=== PATIENT | male | born 1995 | race Caucasian/White ===

== ENCOUNTER 2023-09-30 17:12 | Inpatient (IN) ==
--- NOTE | 2023-09-30 17:23 | ED Triage Note ---
Date of Service September 30, 2023 Provider in Triage Author: Brayan Shelby. History of Present Illness This patient was briefly evaluated while in triage. An abbreviated physical exam was performed. This patient is a 28-year-old Male who presents to the ED for evaluation of sharp stabbing chest pain that has been ongoing for about 2 hours. Started when he was sitting in a workshop. Had a similar episode earlier today woke him out of sleep. + jaw stiffness. Pain does not radiate. No significant cardiac history. Physical Exam CONSTITUTIONAL: in no acute pain or distress, resting comfortably SKIN: pink, warm, dry CARDIAC: regular rate and rhythm CHEST: no reproducible tenderness RESPIRATORY: in no respiratory distress, lungs clear to auscultation ABDOMEN: nontender Initial orders for labs and / or imaging were placed and patient was placed in the waiting area until a bed is available. Please see further documentation for the full ED course.
[2023-09-30 17:52] LABS: Basophils # (auto) 0.03 K/uL (0.00-0.20); Basophils % (auto) 0.6 %; Eosinophils # (auto) 0.06 K/uL (0.00-0.50); Eosinophils % (auto) 1.2 %; Hematocrit (blood only) 44.9 % (42.0-52.0); Hemoglobin 15.2 g/dl (14.0-18.0); Immature Granulocytes # (auto) 0.01 K/uL (0.01-0.20); Immature Granulocytes % (auto) 0.2 %; Lymphocytes # (auto) 1.42 K/uL (1.20-3.40); Mean Corpuscular Hemoglobin 30.6 pg (25.0-34.0); Mean Corpuscular Hgb Conc 33.9 g/dL (32.0-36.0); Mean Corpuscular Volume 90.5 fL (80.0-100.0); Mean Platelet Volume 10.1 fL (9.4-12.4); Monocytes # (auto) 0.66 K/uL (0.11-0.59); Monocytes % (auto) 13.5 %; Neutrophils # (auto) 2.72 K/uL (1.40-6.50); Neutrophils % (auto) 55.5 %; Platelet Count 203 K/uL (130-400); RDW Coefficient of Variation 12.6 % (11.5-14.5); RDW Standard Deviation 41.4 fL (36.4-46.3); Red Blood Count 4.96 M/uL (4.70-6.10)
[2023-09-30 18:08] LABS: Albumin Globulin Ratio 1.5 (0.9-2); Albumin Level 4.7 gm/dl (3.4-5.0); BUN Creatinine Ratio 15.5 (10-20); Bilirubin,Total 0.5 mg/dl (0.2-1.0); Calcium 9.5 mg/dl (8.6-10.3); Creatinine Clr Calc Pharmacy 130.4 ml/min; Est GFR (African American) 124.4 ml/min; Est GFR (Non-African American) 107.3 ml/min; Globulin 3.2 gm/dl (2.5-4.0); Potassium 3.8 mmol/L (3.5-5.1); Total Protein 7.9 gm/dl (6.0-8.3)
[2023-09-30 18:40] LABS: Troponin I High Sensitivity 6741.3 pg/ml (0-20)
[2023-09-30] MEDS: OPTIRAY 320 125ml IV ONE ×2 (19:07→19:41)
--- NOTE | 2023-09-30 19:20 | Emergency Department Note ---
Impression & Plan Myocarditis ED Provider Note NAME: GERMAINE MIRELES AGE: 28 SEX: M : 1995 ARRIVES VIA: Walk-In INFORMANT: Patient, ED PROVIDER(S): Sinai Stroud MD CHIEF COMPLAINT: Chest pain HPI: This is a 28-year-old male presenting for chest pain. Patient notes that this began around 4:30 in the morning with sternal chest pain, just off-center to the left. He notes this resolved within 1 hour in the morning. With then recurred at around 5 PM and has been persistent since. He notes no shortness of breath. He states about a 4/5 out of 10. Otherwise it is a sharp sensation. No fevers associated. He does note he has had feelings of being ill with slight cough, congestion generalized malaise. No history of cardiac issues at young age. No history of dissection. ROS: See above HPI for pertinent positives & negatives. A total of 10 systems reviewed and were otherwise negative. PHYSICAL EXAMINATION: General: resting comfortably in no acute distress Head: Normocephalic and atraumatic Eyes: Normal inspection, extraocular muscles intact Ear, nose, throat: Normal external exam Neck: Normal range of motion Respiratory: lungs clear to auscultation bilaterally Cardiovascular: Regular rate/rhythm, no murmur GI: soft, nontender, no guarding or rebound Extremities: nontender, moves all extremities Neuro: The patient awake and alert, appropriately conversive, no focal deficits, symmetric faces Skin: Warm, dry, and intact MEDICAL DECISION MAKING: This is a 28-year-old male presenting for chest pain. Was alerted to bedside by nurse who reported patient's troponin was over 6700. I performed a bedside echo which reveals normal EF, no signs of right heart strain, no pericardial effusion. EKG is reviewed by me showing normal sinus rhythm at a rate of 85, intervals, with some elevations consistent with STEMI criteria. Copy of EKG was sent to per diem rn who agrees that this is not meeting STEMI criteria. Would recommend interval EKGs. Repeat EKG is largely unchanged from initial EKG. Concern for dissection versus PE however PE is considered less likely as patient is not hypoxic, tachypneic or tachycardic. Dissection is also considered as patient is fairly tall. -CT imaging does not reveal any signs of dissection or PE. Otherwise clinically patient has no pain at this time. EKG for the third time reveals no significant change, still sinus rhythm without ST segment elevations concerning for STEMI. Intervals otherwise within normal limits. -Patient reassessed multiple times during his stay here. Overall well- appearing. With patient's history of having viral type illness last week, consider myocarditis as most likely cause. -Will admit patient for further workup. Discussed with Dr. Jha for admission. Differential diagnosis: STEMI, dissection, PE, myocarditis ER treatment provided: See below Diagnostics interpreted by me: ECG: See above Cardiac Monitoring: An order was placed for continuous cardiac monitoring. The monitor shows a rate of 83 with sinus rhythm. Laboratory studies: As stated above and show below. Imaging studies: See below. Critical Care Note: I have personally spent 35 minutes of critical care time in the direct management of this patient. This includes bedside care, interpretation of diagnostic studies, and testing, discussion with consultants, patient, and family members, and other required patient management activities. This 35 minutes is in excess of all separately billable procedures. 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 Beliefs That Will Affect Care: None Current Living Situation: Alone Other Information That Helps Us Care for You: No Feels Safe at Home: Yes Safety Concerns: Feels Safe At This Time Assistive Devices: Glasses Allergies Allergies Allergy/AdvReac Type Severity Reaction Status Date / Time dog dander Allergy Mild rash Verified 09/30/23 22:30 tea tree Allergy Mild rash Verified 09/30/23 22:30 Home Meds Home Medications Medication Instructions Recorded Confirmed loratadine 10 mg PO DAILY PRN allergies 09/30/23 09/30/23 Results & Data (ED) Vital Signs Vital Signs - 24 hr 09/30/23 17:20 09/30/23 18:40 09/30/23 18:41 Temperature 36.8 C Temperature Source Temporal Artery Scan Pulse Rate 85 78 Pulse Rate [Apical] 70 Pulse Rate from SpO2 Sensor Pulse Rhythm Regular Regular Pulse Strength Normal Respiratory Rate 18 19 19 Respiratory Effort / Characteristics Non-Labored Spontaneous Non-Labored Spontaneous Respiratory Depth Normal Normal Respiratory Pattern Regular Blood Pressure 137/82 Blood Pressure [Right Arm] 136/85 Blood Pressure Mean 100 Blood Pressure Mean [Right Arm] 102 Blood Pressure Position Sitting Pulse Oximetry 99 99 99 Oxygen Delivery Method Room Air Room Air Room Air Sepsis Recent Fever Within 48 Hours No Sepsis New/Unexplained Change in Mental Status No Sepsis Action Taken by Nursing No Action Required 09/30/23 18:46 09/30/23 19:00 09/30/23 19:30 Temperature Temperature Source Pulse Rate 80 91 H 93 H Pulse Rate [Apical] Pulse Rate from SpO2 Sensor 87 Pulse Rhythm Pulse Strength Respiratory Rate 19 22 Respiratory Effort / Characteristics Respiratory Depth Respiratory Pattern Blood Pressure 167/102 H 131/79 Blood Pressure [Right Arm] Blood Pressure Mean 123 96 Blood Pressure Mean [Right Arm] Blood Pressure Position Pulse Oximetry 100 100 Oxygen Delivery Method Room Air Room Air Sepsis Recent Fever Within 48 Hours Sepsis New/Unexplained Change in Mental Status Sepsis Action Taken by Nursing 09/30/23 21:03 09/30/23 21:30 09/30/23 22:00 Temperature Temperature Source Pulse Rate 84 91 H 82 Pulse Rate [Apical] Pulse Rate from SpO2 Sensor 85 91 H 83 Pulse Rhythm Pulse Strength Respiratory Rate 16 20 20 Respiratory Effort / Characteristics Respiratory Depth Respiratory Pattern Blood Pressure 134/78 139/87 127/80 Blood Pressure [Right Arm] Blood Pressure Mean 96 104 95 Blood Pressure Mean [Right Arm] Blood Pressure Position Pulse Oximetry 97 98 98 Oxygen Delivery Method Room Air Room Air Room Air Sepsis Recent Fever Within 48 Hours Sepsis New/Unexplained Change in Mental Status Sepsis Action Taken by Nursing 09/30/23 22:30 Temperature Temperature Source Pulse Rate 88 Pulse Rate [Apical] Pulse Rate from SpO2 Sensor 91 H Pulse Rhythm Pulse Strength Respiratory Rate 21 Respiratory Effort / Characteristics Respiratory Depth Respiratory Pattern Blood Pressure 142/84 H Blood Pressure [Right Arm] Blood Pressure Mean 103 Blood Pressure Mean [Right Arm] Blood Pressure Position Pulse Oximetry 98 Oxygen Delivery Method Room Air Sepsis Recent Fever Within 48 Hours Sepsis New/Unexplained Change in Mental Status Sepsis Action Taken by Nursing Laboratory Data 09/30/23 17:33 09/30/23 17:33 Lab Results 09/30/23 09/30/23 Range/Units 17:33 19:18 WBC 4.90 (4.8-10.8) K/ul RBC 4.96 (4.70-6.10) M/uL Hgb 15.2 (14.0-18.0) g/dl Hct 44.9 (42.0-52.0) % MCV 90.5 (80.0-100.0) fL MCH 30.6 (25.0-34.0) pg MCHC 33.9 (32.0-36.0) g/dL RDW Std Deviation 41.4 (36.4-46.3) fL RDW Coeff of Shena 12.6 (11.5-14.5) % Plt Count 203 (130-400) K/uL MPV 10.1 (9.4-12.4) fL Immature Gran % (Auto) 0.2 % Neut % (Auto) 55.5 % Lymph % (Auto) 29.0 % Ogle % (Auto) 13.5 % Eos % (Auto) 1.2 % Baso % (Auto) 0.6 % Neut # (Auto) 2.72 (1.40-6.50) K/uL Lymph # (Auto) 1.42 (1.20-3.40) K/uL Ogle # (Auto) 0.66 H (0.11-0.59) K/uL Eos # (Auto) 0.06 (0.00-0.50) K/uL Baso # (Auto) 0.03 (0.00-0.20) K/uL Immature Gran # (Auto) 0.01 (0.01-0.20) K/uL Sodium 139 (136-145) mmol/L Potassium 3.8 (3.5-5.1) mmol/L Chloride 103 (98-107) mmol/L Carbon Dioxide 29 (21-32) mmol/L Anion Gap 7 (3-11) BUN 15 (6-23) mg/dl Creatinine 0.97 (0.6-1.4) mg/dl Est Cr Clr Drug Dosing 130.4 ml/min Est GFR ( Amer) 124.4 ml/min Est GFR (Non-Af Amer) 107.3 ml/min BUN/Creatinine Ratio 15.5 (10-20) Glucose 104 H (70-99(Fasting)) mg/dl Calcium 9.5 (8.6-10.3) mg/dl Total Bilirubin 0.5 (0.2-1.0) mg/dl AST 53 H (13-39) U/L ALT 23 (7-52) U/L Alkaline Phosphatase 41 (34-104) U/L Troponin I High Sens 6741.3 H* 8691.9 H* D (0-20) pg/ml Total Protein 7.9 (6.0-8.3) gm/dl Albumin 4.7 (3.4-5.0) gm/dl Globulin 3.2 (2.5-4.0) gm/dl Albumin/Globulin Ratio 1.5 (0.9-2) Lipase 17 (11-82) U/L Lyme Disease Screen Negative (Negative) Administered Medications Sodium Chloride (Nss) 1,000 mls @ 80 mls/hr IV .[id number] STA Stop: 10/01/23 10:13 Last Admin: 09/30/23 21:51 Dose: 80 mls/hr Documented By: TALON Discontinued Medications Ioversol (Optiray 320 125ml) 117 ml IV ONCE ONE Stop: 09/30/23 19:07 Last Admin: 09/30/23 19:07 Dose: 117 ml Documented By: ALIYA Ioversol (Optiray 320 125ml) 116 ml IV ONCE ONE Stop: 09/30/23 19:41 Last Admin: 09/30/23 19:41 Dose: 116 ml Documented By: ALIYA Miscellaneous Information (Patient's Allergy Info Needs Entered) 1 each N/A ONE STA Stop: 09/30/23 21:45 Last Admin: 09/30/23 21:51 Dose: 1 each Documented By: TALON Imaging Data Radiologist's Impression: Chest X-Ray 09/30/23 17:23 XR chest 1V portable HISTORY: central chest pain COMPARISON: None. FINDINGS: The lungs are clear. Cardiac silhouette is normal in size. No pleural effusions. No pneumothorax. IMPRESSION: No acute process. ACT 112: Negative or not required by law. Electronically signed by: George Gilbert M.D. 09/30/2023 7:40 PM Chest CTA 09/30/23 18:52 CHEST CTA for AORTIC DISSECTION CT DOSE: 1900.77 mGy.cm HISTORY: Mid chest pain. Dissection vs PE TECHNIQUE: Multiaxial CT images of the chest were performed both before and after the intravenous administration of contrast to evaluate the aorta. 3D/MIP images were also obtained. Sagittal and coronal reformations were also reviewed. A dose lowering technique was utilized adhering to the principles of ALARA. COMPARISON STUDY: None. FINDINGS: Noncontrast imaging through the chest shows no evidence for an intramural hematoma within the thoracic aorta. There is a normal caliber thoracic aorta with no evidence for a dissection. No filling defects within the pulmonary arteries to suggest a pulmonary embolus. The heart is normal in size. No pleural or pericardial effusions. Limited views of the upper abdomen demonstrate a normal liver, spleen, adrenal glands. Normal esophagus. Normal thyroid gland. No mediastinal or hilar lymphadenopathy. No mediastinal hematoma. No acute fractures identified. No pneumothorax. Mild biapical pleural- parenchymal scarlike densities are noted. The central airways are patent. No focal lung consolidations to suggest a pneumonia. No evidence for pulmonary edema. IMPRESSION: No evidence for an aortic dissection. ACT 112: Negative or not required by law. Electronically signed by: George Gilbert M.D. 09/30/2023 7:40 PM Abdomen/Pelvis CTA 09/30/23 19:09 Exam(s): CTA ABDOMEN + PELVIS W/WO Contrast IV Amt: 116ml EXAM: CT Angiography Abdomen and Pelvis Without and With Intravenous Contrast CLINICAL HISTORY: Reason for exam: Dissection. TECHNIQUE: Axial computed tomographic angiography images of the abdomen and pelvis without and with intravenous contrast. CTDI is 25.65 mGy and DLP is 2729. 98 mGy-cm. Automated exposure control was utilized for the study. A dose lowering technique was utilized adhering to the principles of ALARA. MIP reconstructed images were created and reviewed. CONTRAST: Patient received 116ml of IV contrast COMPARISON: No relevant prior studies available. FINDINGS: VASCULATURE: Aorta: No acute findings. No abdominal aortic aneurysm. No dissection. Celiac trunk and mesenteric arteries: No acute findings. No occlusion or significant stenosis. Renal arteries: No acute findings. No occlusion or significant stenosis. Iliac arteries: No acute findings. No occlusion or significant stenosis. Lung bases: Unremarkable. No mass. No consolidation. ABDOMEN: Liver: Unremarkable. No mass. Gallbladder and bile ducts: Unremarkable. No calcified stones. No ductal dilation. Pancreas: Unremarkable. No ductal dilation. No mass. Spleen: Unremarkable. No splenomegaly. Adrenals: Unremarkable. No mass. Kidneys and ureters: Residual contrast in the renal collecting systems and ureters on precontrast imaging. Normal caliber ureters. No hydronephrosis. Symmetric renal enhancement on postcontrast imaging. Stomach and bowel: Unremarkable. No mucosal thickening. No bowel obstruction. PELVIS: Appendix: No evidence of appendicitis. Bladder: Unremarkable. No stones. No mass. Reproductive: Unremarkable as visualized. ABDOMEN and PELVIS: Intraperitoneal space: Unremarkable. No significant fluid collection. No free air. Bones/joints: No acute fracture. No dislocation. Soft tissues: Unremarkable. Lymph nodes: Unremarkable. No enlarged lymph nodes. IMPRESSION: No acute findings in the arteries of the abdomen and pelvis. Electronically signed by: Benji Arora M.D. 09/30/23 20:36 PM Discharge Plan Visit Data Chief Complaint: Cardiac Assessment Stated Complaint: CHEST PAINS, STIFF JAW ED Provider: Sinai Stroud Discharge Problem: Myocarditis Patient Disposition: Still a Patient Discharge Instructions Interventions: ED Discharge Assessment Last Done: 10/01/23 00:20
--- NOTE | 2023-09-30 19:42 | CT Scan Report ---
CHEST CTA for AORTIC DISSECTION CT DOSE: 1900.77 mGy.cm HISTORY: Mid chest pain. Dissection vs PE TECHNIQUE: Multiaxial CT images of the chest were performed both before and after the intravenous adm inistration of contrast to evaluate the aorta. 3D/MIP images were also obtained. Sagittal and coronal reformations were also reviewed. A dose lowering technique was utilized adhering to the principles of ALARA. COMPARISON STUDY: None. FINDINGS: Noncontrast imaging through the chest shows no evidence for an intramural hematoma within t he thoracic aorta. There is a normal caliber thoracic aorta with no evidence for a dissection. No genevieve ling defects within the pulmonary arteries to suggest a pulmonary embolus. The heart is normal in siz e. No pleural or pericardial effusions. Limited views of the upper abdomen demonstrate a normal liver , spleen, adrenal glands. Normal esophagus. Normal thyroid gland. No mediastinal or hilar lymphadenop athy. No mediastinal hematoma. No acute fractures identified. No pneumothorax. Mild biapical pleural- parenchymal scarlike densities are noted. The central airways are patent. No focal lung consolidation s to suggest a pneumonia. No evidence for pulmonary edema. IMPRESSION: No evidence for an aortic dissection. ACT 112: Negative or not required by law. Electronically signed by: George Gilbert M.D. 09/30/2023 7:40 PM
--- NOTE | 2023-09-30 19:42 | XRay Report ---
XR chest 1V portable HISTORY: central chest pain COMPARISON: None. FINDINGS: The lungs are clear. Cardiac silhouette is normal in size. No pleural effusions. No pneumot horax. IMPRESSION: No acute process. ACT 112: Negative or not required by law. Electronically signed by: George Gilbert M.D. 09/30/2023 7:40 PM
--- NOTE | 2023-09-30 20:37 | CT Scan Report ---
Exam(s): CTA ABDOMEN + PELVIS W/WO Contrast IV Amt: 116ml EXAM: CT Angiography Abdomen and Pelvis Without and With Intravenous Contrast CLINICAL HISTORY: Reason for exam: Dissection. TECHNIQUE: Axial computed tomographic angiography images of the abdomen and pelvis without and with intravenous contrast. CTDI is 25.65 mGy and DLP is 2729. 98 mGy-cm. Automated exposure control was utilized for the study. A dose lowering technique was utilized adhering to the principles of ALARA. MIP reconstructed images were created and reviewed. CONTRAST: Patient received 116ml of IV contrast COMPARISON: No relevant prior studies available. FINDINGS: VASCULATURE: Aorta: No acute findings. No abdominal aortic aneurysm. No dissection. Celiac trunk and mesenteric arteries: No acute findings. No occlusion or significant stenosis. Renal arteries: No acute findings. No occlusion or significant stenosis. Iliac arteries: No acute findings. No occlusion or significant stenosis. Lung bases: Unremarkable. No mass. No consolidation. ABDOMEN: Liver: Unremarkable. No mass. Gallbladder and bile ducts: Unremarkable. No calcified stones. No ductal dilation. Pancreas: Unremarkable. No ductal dilation. No mass. Spleen: Unremarkable. No splenomegaly. Adrenals: Unremarkable. No mass. Kidneys and ureters: Residual contrast in the renal collecting systems and ureters on precontrast imaging. Normal caliber ureters. No hydronephrosis. Symmetric renal enhancement on postcontrast imaging. Stomach and bowel: Unremarkable. No mucosal thickening. No bowel obstruction. PELVIS: Appendix: No evidence of appendicitis. Bladder: Unremarkable. No stones. No mass. Reproductive: Unremarkable as visualized. ABDOMEN and PELVIS: Intraperitoneal space: Unremarkable. No significant fluid collection. No free air. Bones/joints: No acute fracture. No dislocation. Soft tissues: Unremarkable. Lymph nodes: Unremarkable. No enlarged lymph nodes. IMPRESSION: No acute findings in the arteries of the abdomen and pelvis. Electronically signed by: Benji Arora M.D. 09/30/23 20:36 PM
[2023-09-30 20:46] LABS: Adenovirus PCR Not Detected (NotDetected); Bordetella parapertussis PCR Not Detected (NotDetected); Bordetella pertussis PCR Not Detected (NotDetected); Chlamydia pneumoniae PCR Not Detected (NotDetected); Coronavirus 229E PCR Not Detected (NotDetected); Coronavirus CoV-2 (COVID19)PCR Not Detected (NotDetected); Coronavirus HKU1 PCR Not Detected (NotDetected); Coronavirus NL63 PCR Not Detected (NotDetected); Coronavirus OC43PCR Not Detected (NotDetected); Human Metapneumovirus PCR Not Detected (NotDetected); Influenza A PCR Not Detected (NotDetected); Influenza B PCR Not Detected (NotDetected); Mycoplasma pneumoniae PCR Not Detected (NotDetected); Parainfluenza Virus 1 PCR Not Detected (NotDetected); Parainfluenza Virus 2 PCR Not Detected (NotDetected); Parainfluenza Virus 3 PCR Not Detected (NotDetected); Parainfluenza Virus 4 PCR Not Detected (NotDetected); Respiratory Syncytial VirusPCR Not Detected (NotDetected); Rhinovirus/Enterovirus PCR Not Detected (NotDetected)
[2023-09-30] MEDS: Patient's ALLERGY Info needs ENTERED STA (21:51)
[2023-09-30] MEDS: SODIUM CHLORIDE 0.9% 1,000 ML IV STA (21:51)
--- NOTE | 2023-09-30 22:30 | History & Physical Report ---
Date of Service September 30, 2023 Assessment & Plan (1) Myocarditis: Plan: Possibly viral etiology bronchial asthma, not in acute exacerbation ulcerative colitis, in remission past alcohol abuse PCU NSAIDs for analgesia Follow troponin TTE, cardiology consult Re: Chest pain with troponin elevation DVT prophylaxis. Lovenox subcu Full code Patient requesting for discharge before noontime tomorrow if feasible due to scheduled presentation at the [facility] in the afternoon. Text document was generated using [employer] voice recognition software. It may contain grammatical or spelling errors. Kindly contact undersigned for clarification of any documentation item in question. History of Present Illness Chief Complaint: Chest pain Primary Care Provider: NO PCP History obtained from patient and records. Medical history significant for bronchial asthma, ulcerative colitis, past alcohol abuse. 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 Patient noted dry cough symptoms, malaise few days ago en route to [place] from [place]. Attributed symptoms to just being tired from travel with 3 connecting flights. Patient roused from sleep early a.m. with left-sided sharp chest pain without radiation. No shortness of breath. No headache, no abdominal pain. May have had a short-lived episode a few months back. Different from reflux as per patient. Patient consulted ER for worsening symptoms. Patient currently comfortable. 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 Allergies Allergy/AdvReac Type Severity Reaction Status Date / Time dog dander Allergy Mild rash Verified 09/30/23 22:30 tea tree Allergy Mild rash Verified 09/30/23 22:30 Home Medications Medication Instructions Recorded Confirmed Type loratadine 10 mg PO DAILY PRN allergies 09/30/23 09/30/23 History Past Med/Surg History Problem List (Updated 10/01/23 @ 01:06 by Sinai Stroud MD) Myocarditis (Acute) Social History Smoking Status: Never smoker Hx Alcohol Use: Yes Alcohol type: wine Hx Substance Use: Yes Last Used Substance Other:: over a year ago Substance Use Type Other:: shrooms Preferred Language: Sami Communication Ability: Effective Kettle Hand Required: No Beliefs That Will Affect Care: None Current Living Situation: Alone Other Information That Helps Us Care for You: No Feels Safe at Home: Yes Safety Concerns: Feels Safe At This Time Assistive Devices: Glasses Review of Systems Review of Systems: As per HPI, all other systems reviewed and negative Physical Exam Physical Exam: GENERAL: Comfortable, pleasant, no respiratory distress SKIN: Normal color, warm HEENT: Bespectacled, [place] palpebral conjunctivae, no ptosis, dry buccal mucosa NECK : Supple, no tenderness CHEST : CTA, no tenderness HEART : RRR, no obvious murmurs ABDOMEN: no distention, nontender EXTREMITIES : No LE swelling/tenderness, no other conspicuous deformities noted NEUROLOGIC : Coherent, no facial asymmetry, no other gross focality Results & Data Results & Data Vital Signs (Past 12 Hours) Vital Signs Temp Pulse Pulse Resp BP BP Pulse Ox 09/30/23 21:30 91 H 20 139/87 98 09/30/23 21:03 84 16 134/78 97 09/30/23 19:30 93 H 22 131/79 100 09/30/23 19:00 91 H 19 167/102 H 100 09/30/23 18:46 80 09/30/23 18:41 78 19 99 09/30/23 18:40 70 19 136/85 99 09/30/23 17:20 36.8 C 85 18 137/82 99 O2 Del Method 09/30/23 21:30 Room Air 09/30/23 21:03 Room Air 09/30/23 19:30 Room Air 09/30/23 19:00 Room Air 09/30/23 18:46 09/30/23 18:41 Room Air 09/30/23 18:40 Room Air 09/30/23 17:20 Room Air Laboratory Results Laboratory Results WBC 4.90 K/ul (4.8-10.8) 09/30/23 17:33 RBC 4.96 M/uL (4.70-6.10) 09/30/23 17:33 Hgb 15.2 g/dl (14.0-18.0) 09/30/23 17:33 Hct 44.9 % (42.0-52.0) 09/30/23 17:33 MCV 90.5 fL (80.0-100.0) 09/30/23 17:33 MCH 30.6 pg (25.0-34.0) 09/30/23 17:33 MCHC 33.9 g/dL (32.0-36.0) 09/30/23 17:33 RDW Std Deviation 41.4 fL (36.4-46.3) 09/30/23 17:33 RDW Coeff of [place] 12.6 % (11.5-14.5) 09/30/23 17:33 Plt Count 203 K/uL (130-400) 09/30/23 17:33 MPV 10.1 fL (9.4-12.4) 09/30/23 17:33 Immature Gran % (Auto) 0.2 % 09/30/23 17:33 Neut % (Auto) 55.5 % 09/30/23 17:33 Lymph % (Auto) 29.0 % 09/30/23 17:33 [place] % (Auto) 13.5 % 09/30/23 17:33 Eos % (Auto) 1.2 % 09/30/23 17:33 Baso % (Auto) 0.6 % 09/30/23 17:33 Neut # (Auto) 2.72 K/uL (1.40-6.50) 09/30/23 17:33 Lymph # (Auto) 1.42 K/uL (1.20-3.40) 09/30/23 17:33 [place] # (Auto) 0.66 K/uL (0.11-0.59) H 09/30/23 17:33 Eos # (Auto) 0.06 K/uL (0.00-0.50) 09/30/23 17:33 Baso # (Auto) 0.03 K/uL (0.00-0.20) 09/30/23 17:33 Immature Gran # (Auto) 0.01 K/uL (0.01-0.20) 09/30/23 17:33 Sodium 139 mmol/L (136-145) 09/30/23 17:33 Potassium 3.8 mmol/L (3.5-5.1) 09/30/23 17:33 Chloride 103 mmol/L (98-107) 09/30/23 17:33 Carbon Dioxide 29 mmol/L (21-32) 09/30/23 17:33 Anion Gap 7 (3-11) 09/30/23 17:33 BUN 15 mg/dl (6-23) 09/30/23 17:33 Creatinine 0.97 mg/dl (0.6-1.4) 09/30/23 17:33 Est Cr Clr Drug Dosing 130.4 ml/min 09/30/23 17:33 Est GFR ( Amer) 124.4 ml/min 09/30/23 17:33 Est GFR (Non-Af Amer) 107.3 ml/min 09/30/23 17:33 BUN/Creatinine Ratio 15.5 (10-20) 09/30/23 17:33 Glucose 104 mg/dl (70-99(Fasting)) H 09/30/23 17:33 Calcium 9.5 mg/dl (8.6-10.3) 09/30/23 17:33 Total Bilirubin 0.5 mg/dl (0.2-1.0) 09/30/23 17:33 AST 53 U/L (13-39) H 09/30/23 17:33 ALT 23 U/L (7-52) 09/30/23 17:33 Alkaline Phosphatase 41 U/L (34-104) 09/30/23 17:33 Troponin I High Sens 8691.9 pg/ml (0-20) H* D 09/30/23 19:18 Total Protein 7.9 gm/dl (6.0-8.3) 09/30/23 17:33 Albumin 4.7 gm/dl (3.4-5.0) 09/30/23 17:33 Globulin 3.2 gm/dl (2.5-4.0) 09/30/23 17:33 Albumin/Globulin Ratio 1.5 (0.9-2) 09/30/23 17:33 Lipase 17 U/L (11-82) 09/30/23 17:33 Adenovirus (PCR) Not Detected (NotDetected) 09/30/23 Unknown B. pertussis DNA (PCR) Not Detected (NotDetected) 09/30/23 Unknown B.parapertussis DNA PCR Not Detected (NotDetected) 09/30/23 Unknown C. pneumoniae DNA (PCR) Not Detected (NotDetected) 09/30/23 Unknown Coronavirus OC43 (PCR) Not Detected (NotDetected) 09/30/23 Unknown Coronavirus HKU1 (PCR) Not Detected (NotDetected) 09/30/23 Unknown Coronavirus 229E (PCR) Not Detected (NotDetected) 09/30/23 Unknown SARS-CoV-2 (PCR) Not Detected (NotDetected) 09/30/23 Unknown Coronavirus NL63 (PCR) Not Detected (NotDetected) 09/30/23 Unknown Human Metapneumovir PCR Not Detected (NotDetected) 09/30/23 Unknown Influenza Type A (PCR) Not Detected (NotDetected) 09/30/23 Unknown Influenza Type B (PCR) Not Detected (NotDetected) 09/30/23 Unknown M. pneumoniae (PCR) Not Detected (NotDetected) 09/30/23 Unknown Parainfluenza 1 (PCR) Not Detected (NotDetected) 09/30/23 Unknown Parainfluenza 2 (PCR) Not Detected (NotDetected) 09/30/23 Unknown Parainfluenza 3 (PCR) Not Detected (NotDetected) 09/30/23 Unknown Parainfluenza 4 (PCR) Not Detected (NotDetected) 09/30/23 Unknown RSV (PCR) Not Detected (NotDetected) 09/30/23 Unknown Entero/Rhino (PCR) Not Detected (NotDetected) 09/30/23 Unknown Impressions Chest X-Ray 09/30/23 17:23 XR chest 1V portable HISTORY: central chest pain COMPARISON: None. FINDINGS: The lungs are clear. Cardiac silhouette is normal in size. No pleural effusions. No pneumothorax. IMPRESSION: No acute process. ACT 112: Negative or not required by law. Electronically signed by: George Gilbert M.D. 09/30/2023 7:40 PM Chest CTA 09/30/23 18:52 CHEST CTA for AORTIC DISSECTION CT DOSE: 1900.77 mGy.cm HISTORY: Mid chest pain. Dissection vs PE TECHNIQUE: Multiaxial CT images of the chest were performed both before and after the intravenous administration of contrast to evaluate the aorta. 3D/MIP images were also obtained. Sagittal and coronal reformations were also reviewed. A dose lowering technique was utilized adhering to the principles of ALARA. COMPARISON STUDY: None. FINDINGS: Noncontrast imaging through the chest shows no evidence for an intramural hematoma within the thoracic aorta. There is a normal caliber thoracic aorta with no evidence for a dissection. No filling defects within the pulmonary arteries to suggest a pulmonary embolus. The heart is normal in size. No pleural or pericardial effusions. Limited views of the upper abdomen demonstrate a normal liver, spleen, adrenal glands. Normal esophagus. Normal thyroid gland. No mediastinal or hilar lymphadenopathy. No mediastinal hematoma. No acute fractures identified. No pneumothorax. Mild biapical pleural- parenchymal scarlike densities are noted. The central airways are patent. No focal lung consolidations to suggest a pneumonia. No evidence for pulmonary edema. IMPRESSION: No evidence for an aortic dissection. ACT 112: Negative or not required by law. Electronically signed by: George Gilbert M.D. 09/30/2023 7:40 PM Abdomen/Pelvis CTA 09/30/23 19:09 Exam(s): CTA ABDOMEN + PELVIS W/WO Contrast IV Amt: 116ml EXAM: CT Angiography Abdomen and Pelvis Without and With Intravenous Contrast CLINICAL HISTORY: Reason for exam: Dissection. TECHNIQUE: Axial computed tomographic angiography images of the abdomen and pelvis without and with intravenous contrast. CTDI is 25.65 mGy and DLP is 2729. 98 mGy-cm. Automated exposure control was utilized for the study. A dose lowering technique was utilized adhering to the principles of ALARA. MIP reconstructed images were created and reviewed. CONTRAST: Patient received 116ml of IV contrast COMPARISON: No relevant prior studies available. FINDINGS: VASCULATURE: Aorta: No acute findings. No abdominal aortic aneurysm. No dissection. Celiac trunk and mesenteric arteries: No acute findings. No occlusion or significant stenosis. Renal arteries: No acute findings. No occlusion or significant stenosis. Iliac arteries: No acute findings. No occlusion or significant stenosis. Lung bases: Unremarkable. No mass. No consolidation. ABDOMEN: Liver: Unremarkable. No mass. Gallbladder and bile ducts: Unremarkable. No calcified stones. No ductal dilation. Pancreas: Unremarkable. No ductal dilation. No mass. Spleen: Unremarkable. No splenomegaly. Adrenals: Unremarkable. No mass. Kidneys and ureters: Residual contrast in the renal collecting systems and ureters on precontrast imaging. Normal caliber ureters. No hydronephrosis. Symmetric renal enhancement on postcontrast imaging. Stomach and bowel: Unremarkable. No mucosal thickening. No bowel obstruction. PELVIS: Appendix: No evidence of appendicitis. Bladder: Unremarkable. No stones. No mass. Reproductive: Unremarkable as visualized. ABDOMEN and PELVIS: Intraperitoneal space: Unremarkable. No significant fluid collection. No free air. Bones/joints: No acute fracture. No dislocation. Soft tissues: Unremarkable. Lymph nodes: Unremarkable. No enlarged lymph nodes. IMPRESSION: No acute findings in the arteries of the abdomen and pelvis. Electronically signed by: Benji Arora M.D. 09/30/23 20:36 PM Diagnostic Findings EKG as per my interpretation : Rate 85, NSR, normal axis, T wave abnormalities septal leads
[2023-09-30] MEDS ORDERED: LORazepam 0.5 MG TAB PO PRN (22:31)
[2023-09-30] MEDS ORDERED: ACETAMINOPHEN 325 MG TAB PO PRN (22:31)
[2023-09-30] MEDS ORDERED: IBUPROFEN 200 MG TAB PO PRN (22:31)
[2023-09-30] MEDS ORDERED: PROMETHAZINE HCL 6.25 MG in SODIUM CHLORIDE 0.9% 50 ML IV PRN (22:31)
[2023-09-30] MEDS ORDERED: KETOROLAC TROMETHAMINE 15 MG/ML VIAL IV PRN (22:31)
[2023-09-30 23:18] LABS: C Reactive Protein 3.2 mg/dl (0-0.5)
[2023-10-01 00:21] LABS: Appearance Urine Clear (Clear); Bacteria Urine Automated None Seen (None Seen); Bilirubin Urine Negative (Negative); Blood Urine Negative (Negative); Cast Urine Automated 0-2 /lpf (0-2); Color Urine Yellow; Epithelial Cell Urine Auto 0-2 /hpf (0-2); Glucose Urine UA Negative (Negative); Ketones Urine Negative (Negative); Leukocyte Esterase Urine Negative (Negative); Nitrite Urine Negative (Negative); Protein Urine Trace (Negative); RBC Urine Automated 0-2 /hpf (0-2); Specific Gravity Urine > 1.045 (1.000-1.030); Urobilinogen Urine Negative (Negative); WBC Urine Automated 0-5 /hpf (0-5); pH Urine 6.5 (4.5-7.5)
[2023-10-01] MEDS ORDERED: LORATADINE 10 MG TAB PO PRN (00:21)
[2023-10-01 01:08] LABS: Amphetamines+Metham, Urine Neg (Neg); Barbiturates, Urine Neg (Neg); Benzodiazepine, Urine Neg (Neg); Cocaine, Urine Neg (Neg); Fentanyl, Urine Neg (Neg); MDMA (Ecstacy), Urine Neg (Neg); Marijuana, Urine Neg (Neg); Methadone, Urine Neg (Neg); Opiate, Urine Neg (Neg); Phencyclidine, Urine Neg (Neg)
[2023-10-01 04:48] LABS: Basophils # (auto) 0.03 K/uL (0.00-0.20); Basophils % (auto) 0.6 %; Eosinophils # (auto) 0.11 K/uL (0.00-0.50); Eosinophils % (auto) 2.1 %; Hematocrit (blood only) 40.2 % (42.0-52.0); Hemoglobin 13.6 g/dl (14.0-18.0); Immature Granulocytes # (auto) 0.01 K/uL (0.01-0.20); Immature Granulocytes % (auto) 0.2 %; Lymphocytes # (auto) 1.73 K/uL (1.20-3.40); Lymphocytes % (auto) 33.7 %; Mean Corpuscular Hemoglobin 30.6 pg (25.0-34.0); Mean Corpuscular Hgb Conc 33.8 g/dL (32.0-36.0); Mean Corpuscular Volume 90.3 fL (80.0-100.0); Mean Platelet Volume 10.1 fL (9.4-12.4); Monocytes # (auto) 0.74 K/uL (0.11-0.59); Monocytes % (auto) 14.4 %; Neutrophils # (auto) 2.52 K/uL (1.40-6.50); Platelet Count 193 K/uL (130-400); RDW Coefficient of Variation 12.4 % (11.5-14.5); RDW Standard Deviation 41.3 fL (36.4-46.3); Red Blood Count 4.45 M/uL (4.70-6.10); White Blood Count 5.14 K/ul (4.8-10.8)
[2023-10-01 05:02] LABS: BUN Creatinine Ratio 15.3 (10-20); Creatinine Clr Calc Pharmacy 148.8 ml/min; Est GFR (African American) 139.4 ml/min; Est GFR (Non-African American) 120.3 ml/min; Potassium 3.8 mmol/L (3.5-5.1)
[2023-10-01 05:11] LABS: Troponin I High Sensitivity 10110.9 pg/ml (0-20)
--- NOTE | 2023-10-01 07:32 | Electrocardiogram Report ---
Test Reason : Blood Pressure : / mmHG Vent. Rate : 078 BPM Atrial Rate : 078 BPM P-R Int : 134 ms QRS Dur : 102 ms QT Int : 380 ms P-R-T Axes : 049 073 042 degrees QTc Int : 433 ms Normal sinus rhythm Nonspecific ST and T wave abnormality Abnormal ECG When compared with ECG of 30-SEP-2023 17:27, No significant change was found Confirmed by Reji Amaral ([id number]) on 10/01/2023 7:32:40 AM Referred By: NO PCP Confirmed By:Reji Amaral
--- NOTE | 2023-10-01 07:32 | Electrocardiogram Report ---
Test Reason : Blood Pressure : / mmHG Vent. Rate : 085 BPM Atrial Rate : 085 BPM P-R Int : 130 ms QRS Dur : 096 ms QT Int : 364 ms P-R-T Axes : 060 074 057 degrees QTc Int : 433 ms Normal sinus rhythm Nonspecific ST abnormality Abnormal ECG No previous ECGs available Confirmed by Reji Amaral ([id number]) on 10/01/2023 7:32:29 AM Referred By: NO PCP Confirmed By:Reji Amaral
--- NOTE | 2023-10-01 07:33 | Electrocardiogram Report ---
Test Reason : Blood Pressure : / mmHG Vent. Rate : 087 BPM Atrial Rate : 087 BPM P-R Int : 140 ms QRS Dur : 104 ms QT Int : 362 ms P-R-T Axes : 056 077 047 degrees QTc Int : 435 ms Normal sinus rhythm Incomplete right bundle branch block Nonspecific T wave abnormality Abnormal ECG When compared with ECG of 30-SEP-2023 18:44, No significant change was found Confirmed by Reji Amaral ([id number]) on 10/01/2023 7:32:58 AM Referred By: NO PCP Confirmed By:Reji Amaral
--- NOTE | 2023-10-01 07:37 | Cardiology Consultation ---
Date of Consultation October 01, 2023 Assessment & Plan (1) Myopericarditis: Plan IMPRESSION: 28-year-old male chest pain likely in the setting of acute myocarditis; possible viral etiology as patient had GI illness last week. Lyme pending. Echo with preserved LVEF, no wall motion abnormalities or valvular disease PLAN: Myocarditis: Currently chest pain free. +Fatigue Patient significantly hypertensive. Recommend initiation of goal-directed medical therapy Start lisinopril 5 mg daily Start metoprolol succinate 25 mg daily- monitor on telemetry Daily EKGs Patient does not live locally- will need to establish with cardiology team closer to home. No strenuous activity/exercise x6 months. Consider stress testing prior to activity clearance. Recommend outpatient cardiac MRI Case discussed with Dr. Cortés. Further recommendations pending assessment. I spent a total of 60 minutes on the date of service in preparation, delivery, and documentation of the care provided to the patient excluding any time spent in the performance of separately billed services. DARIN Marshall Department of Cardiology, [facility] This chart was completed in part utilizing [employer] Voice [employer]ognition Software. Grammatical errors, random word insertions, pronoun errors, and incomplete sentences are an occasional consequence of this system due to software limitations, ambient noise, and hardware issues. Any formal questions or conc erns about the content, text, or information contained within the body of this dictation should be directly addressed to the provider for clarification. Supervising Physician Co-Signing Physician Notes I have personally performed a history and physical examination on the patient. I have reviewed the advance practitioner's documentation, and I agree with, and take responsibility for the plan of care. 28-year-old male admitted with chest discomfort, trivial pericardial effusion, elevated CRP and troponin suggestive of myopericarditis. Possible post-viral etiology given recent gastrointestinal illness. Echocardiogram demonstrates normal wall motion. ECG with incomplete right bundle branch block, diffuse J- point elevation and nonspecific T wave abnormality. Recommend aspirin 325 mg twice daily in addition to colchicine 0.6 mg twice daily. Intermittently hypertensive in the ER. Initiate treatment with low-dose lisinopril, and Toprol-XL. Repeat high-sensitivity troponin and ECG. Maintain telemetry monitoring during hospitalization. Repeat ECG in AM. Activity/exercise restrictions over the next 3 to 6 months discussed. All questions answered to patient's satisfaction. I spent a total of 50 minutes on the date of service in preparation, delivery, and documentation of the care provided to this patient, excluding any time spent in the performance of separately billed services. History of Present Illness Reason for Consultation: Myocarditis Requesting Physician: Linnea hospitalist Attending Physician: Silvia Stoner MD History of Present Illness 28-year-old male who presented to [facility] emergency department yesterday evening due to sudden onset chest discomfort. Pain described as a sharp stabbing chest discomfort that woke him out of sleep. High-sensitivity troponin significantly elevated (6,700>>8,700>>9,955>>10,110) Bedside echo was performed showing no evidence of pericardial effusion or right heart strain. EKG without evidence of acute ST elevation on multiple tracings CT of the chest showed no evidence of dissection or PE. 10/01/2023: Full echo: (Preliminary read) normal LVEF without wall motion abnormalities or significant valvular disease. Tele: SR/ST 90-110s Upon entrance into the room patient resting in bed. Currently chest pain free. No shortness of breath. Notes some mild palpitations. Feels easily fatigued. No dizziness, syncope or near syncope. No orthopnea, PND, or increased lower extremity edema. No fever, chills, cough, hematochezia, melena, or hemoptysis. Patient reported having a viral illness last week with vomiting and diarrhea, but viral panel blood work completed was unremarkable. 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 + Alcohol use, 2-3 beers per week. No current drug use- formally daily marijuana use. No tobacco use. Past medical history: History of ulcerative colitis, in remission History of alcohol abuse, now drinks 2-3 beers per week Hx of Marijuana use (quit 2020) Allergies Allergy/AdvReac Type Severity Reaction Status Date / Time dog dander Allergy Mild rash Verified 09/30/23 22:30 tea tree Allergy Mild rash Verified 09/30/23 22:30 Home Medications Medication Instructions Recorded Confirmed Type loratadine 10 mg PO DAILY PRN allergies 09/30/23 09/30/23 History Patient History Social History Smoking Status: Never smoker Hx Alcohol Use: Yes Alcohol type: wine Hx Substance Use: Yes Last Used Substance Other:: over a year ago Substance Use Type Other:: shrooms Preferred Language: Upper Sorbian Communication Ability: Effective Special Officer Required: No Beliefs That Will Affect Care: None Current Living Situation: Alone Other Information That Helps Us Care for You: No Feels Safe at Home: Yes Safety Concerns: Feels Safe At This Time Assistive Devices: Glasses Review of Systems Review of Systems: All systems reviewed & are unremarkable except as noted in HPI & below Physical Exam Constitutional: WD/WN, vitals as above no acute distress Eyes: PERRL, conjunctivae normal, anicteric sclerae ENMT: external ear and nose normal, oropharynx normal Neck: normal visual inspection and trachea midline Respiratory: normal respiratory effort, lungs clear to auscultation Cardiovascular: Rate/Rhythm: regular rate, regular rhythm and + tachycardic Heart Sounds: normal S1 and normal S2; no murmur Vessels: no JVD Extremities: no edema Gastrointestinal (Abdomen): normal bowel sounds, soft, nontender, no hepatosplenomegaly Musculoskeletal: no cyanosis or clubbing, extremities motor strength 5/5 Skin: no rashes, warm and dry Neurologic: PERRL, EOMI, accommodation nl, no face palsy, no dysarthria Psychiatric: A+Ox3, euthymic affect Results & Data Vital Signs (Past 12 Hours) Vital Signs Pulse Pulse Resp BP BP Pulse Ox Pulse Ox 10/01/23 07:12 86 10/01/23 02:41 10/01/23 02:41 97 10/01/23 02:00 76 18 175/104 H 96 10/01/23 00:00 83 18 152/94 H 98 09/30/23 23:50 09/30/23 22:51 94 H 09/30/23 22:30 88 21 142/84 H 98 09/30/23 22:00 82 20 127/80 98 09/30/23 21:30 91 H 20 139/87 98 09/30/23 21:03 84 16 134/78 97 09/30/23 19:30 93 H 22 131/79 100 O2 Del Method O2 Del Method 10/01/23 07:12 10/01/23 02:41 Room Air 10/01/23 02:41 Room Air 10/01/23 02:00 Room Air 10/01/23 00:00 Room Air 09/30/23 23:50 Room Air 09/30/23 22:51 09/30/23 22:30 Room Air 06/01/24 22:00 Room Air 09/30/23 21:30 Room Air 09/30/23 21:03 Room Air 09/30/23 19:30 Room Air Laboratory Results Cardiac Enzymes 09/30/23 09/30/23 09/30/23 Range/Units 17:33 19:18 22:45 AST 53 H (13-39) U/L Troponin I High Sens 6741.3 H* 8691.9 H* D 9955.0 H* (0-20) pg/ml 10/01/23 Range/Units 04:09 AST (13-39) U/L Troponin I High Sens 33229.9 H* (0-20) pg/ml CBC 09/30/23 10/01/23 Range/Units 17:33 04:09 WBC 4.90 5.14 (4.8-10.8) K/ul RBC 4.96 4.45 L (4.70-6.10) M/uL Hgb 15.2 13.6 L (14.0-18.0) g/dl Hct 44.9 40.2 L (42.0-52.0) % Plt Count 203 193 (130-400) K/uL Neut # (Auto) 2.72 2.52 (1.40-6.50) K/uL Lymph # (Auto) 1.42 1.73 (1.20-3.40) K/uL [place] # (Auto) 0.66 H 0.74 H (0.11-0.59) K/uL Eos # (Auto) 0.06 0.11 (0.00-0.50) K/uL Baso # (Auto) 0.03 0.03 (0.00-0.20) K/uL Comprehensive Metabolic Panel 09/30/23 10/01/23 Range/Units 17:33 04:09 Sodium 139 140 (136-145) mmol/L Potassium 3.8 3.8 (3.5-5.1) mmol/L Chloride 103 107 (98-107) mmol/L Carbon Dioxide 29 27 (21-32) mmol/L BUN 15 13 (6-23) mg/dl Creatinine 0.97 0.85 (0.6-1.4) mg/dl Glucose 104 H 95 (70-99(Fasting)) mg/dl Calcium 9.5 9.0 (8.6-10.3) mg/dl AST 53 H (13-39) U/L ALT 23 (7-52) U/L Alkaline Phosphatase 41 (34-104) U/L Total Protein 7.9 (6.0-8.3) gm/dl Albumin 4.7 (3.4-5.0) gm/dl Intake and Output 09/30/23 10/01/23 10/01/23 22:59 06:59 14:59 Output Total Balance - Output: # Bowel Movements Other: # Unmeasured Voids 2 Weight 91.4 kg 91 kg Weight Measurement Method Chair Scale Built in [facility]
[2023-10-01] MEDS: lisinopril 5 MG TAB PO SCH (08:34)
[2023-10-01] MEDS: METOPROLOL TARTRATE 25 MG TAB PO SCH (08:35)
[2023-10-01] MEDS: ENOXAPARIN INJ 40 MG/0.4 ML SYR SQ SCH (09:33)
--- NOTE | 2023-10-01 14:04 | Hospitalist Progress Note ---
Date of Service October 01, 2023 Assessment & Plan (1) Myocarditis: Plan Pt is a 28yoM with PMhx significant for bronchial asthma, ulcerative colitis, past alcohol abuse who presented with left-sided sharp chest pain without radiation. Chest Pain Myocarditis Left sided chest pain Trops as high as >36346 EKG NSR on admission Echo wnl except for noted "trivial loculated anterior pericardial effusion" Chest xray, chest CTA, CT abd/pelvis with no acute findings Possibly viral etiology Cardiology consulted, appreciate recs -Recommend aspirin 325 mg twice daily in addition to colchicine 0.6 mg twice daily. -tele monitoring, repeat EKG in AM -Activity/exercise restrictions over the next 3 to 6 months Continue to monitor HTN Noted on admission Per cardiology start low dose lisinopril, and Toprol-XL. Continue to monitor bronchial asthma not in acute exacerbation ulcerative colitis in remission Diet: HH DVT prophylaxis. Lovenox subcu Full code Admission and Anticipated Discharge Date Admission Date: September 30, 2023 Subjective Seen while still down in the ED States that his chest pain had improved Review of Systems Review of Systems: All systems reviewed & are unremarkable except as noted in Subjective Physical Exam Physical Exam: General: Alert, oriented. No acute distress Skin: No noted rashes or bruises Psych: Appropriate mood and affect Neuro: No gross deficits HEENT: NC/AT Chest: Nontender to palpation. CV: RRR Resp: Breath sounds clear bilaterally, no increased effort of breathing. Abdomen: Soft, nontender, nondistended. Extremities: No edema in lower extremities bilaterally. Results & Data Results & Data Vital Signs (Past 12 Hours) Vital Signs Pulse Resp BP Pulse Ox Pulse Ox O2 Del Method O2 Del Method 10/01/23 11:33 92 H 18 95 10/01/23 11:12 84 25 H 134/65 94 10/01/23 10:30 92 H 14 96 10/01/23 09:39 81 20 95 10/01/23 09:06 79 18 93 10/01/23 08:30 92 H 18 96 10/01/23 08:06 96 H 18 96 10/01/23 07:42 81 16 95 10/01/23 07:12 86 10/01/23 07:09 71 14 93 10/01/23 02:41 Room Air 10/01/23 02:41 97 Room Air Diagnostic Findings Chest X-Ray 09/30/23 17:23 XR chest 1V portable HISTORY: central chest pain COMPARISON: None. FINDINGS: The lungs are clear. Cardiac silhouette is normal in size. No pleural effusions. No pneumothorax. IMPRESSION: No acute process. ACT 112: Negative or not required by law. Electronically signed by: George Gilbert M.D. 09/30/2023 7:40 PM Chest CTA 09/30/23 18:52 CHEST CTA for AORTIC DISSECTION CT DOSE: 1900.77 mGy.cm HISTORY: Mid chest pain. Dissection vs PE TECHNIQUE: Multiaxial CT images of the chest were performed both before and after the intravenous administration of contrast to evaluate the aorta. 3D/MIP images were also obtained. Sagittal and coronal reformations were also reviewed. A dose lowering technique was utilized adhering to the principles of ALARA. COMPARISON STUDY: None. FINDINGS: Noncontrast imaging through the chest shows no evidence for an intramural hematoma within the thoracic aorta. There is a normal caliber thoracic aorta with no evidence for a dissection. No filling defects within the pulmonary arteries to suggest a pulmonary embolus. The heart is normal in size. No pleural or pericardial effusions. Limited views of the upper abdomen demonstrate a normal liver, spleen, adrenal glands. Normal esophagus. Normal thyroid gland. No mediastinal or hilar lymphadenopathy. No mediastinal hematoma. No acute fractures identified. No pneumothorax. Mild biapical pleural- parenchymal scarlike densities are noted. The central airways are patent. No focal lung consolidations to suggest a pneumonia. No evidence for pulmonary edema. IMPRESSION: No evidence for an aortic dissection. ACT 112: Negative or not required by law. Electronically signed by: George Gilbert M.D. 09/30/2023 7:40 PM Abdomen/Pelvis CTA 09/30/23 19:09 Exam(s): CTA ABDOMEN + PELVIS W/WO Contrast IV Amt: 116ml EXAM: CT Angiography Abdomen and Pelvis Without and With Intravenous Contrast CLINICAL HISTORY: Reason for exam: Dissection. TECHNIQUE: Axial computed tomographic angiography images of the abdomen and pelvis without and with intravenous contrast. CTDI is 25.65 mGy and DLP is 2729. 98 mGy-cm. Automated exposure control was utilized for the study. A dose lowering technique was utilized adhering to the principles of ALARA. MIP reconstructed images were created and reviewed. CONTRAST: Patient received 116ml of IV contrast COMPARISON: No relevant prior studies available. FINDINGS: VASCULATURE: Aorta: No acute findings. No abdominal aortic aneurysm. No dissection. Celiac trunk and mesenteric arteries: No acute findings. No occlusion or significant stenosis. Renal arteries: No acute findings. No occlusion or significant stenosis. Iliac arteries: No acute findings. No occlusion or significant stenosis. Lung bases: Unremarkable. No mass. No consolidation. ABDOMEN: Liver: Unremarkable. No mass. Gallbladder and bile ducts: Unremarkable. No calcified stones. No ductal dilation. Pancreas: Unremarkable. No ductal dilation. No mass. Spleen: Unremarkable. No splenomegaly. Adrenals: Unremarkable. No mass. Kidneys and ureters: Residual contrast in the renal collecting systems and ureters on precontrast imaging. Normal caliber ureters. No hydronephrosis. Symmetric renal enhancement on postcontrast imaging. Stomach and bowel: Unremarkable. No mucosal thickening. No bowel obstruction. PELVIS: Appendix: No evidence of appendicitis. Bladder: Unremarkable. No stones. No mass. Reproductive: Unremarkable as visualized. ABDOMEN and PELVIS: Intraperitoneal space: Unremarkable. No significant fluid collection. No free air. Bones/joints: No acute fracture. No dislocation. Soft tissues: Unremarkable. Lymph nodes: Unremarkable. No enlarged lymph nodes. IMPRESSION: No acute findings in the arteries of the abdomen and pelvis. Electronically signed by: Benji Arora M.D. 09/30/23 20:36 PM (1) Myocarditis Chronicity: acute Infective myocarditis organism: viral Myocarditis type: infective Qualified Code(s): I40.0 - Infective myocarditis
[2023-10-01] MEDS: ASPIRIN 81 MG CHEW PO ONE (16:14)
[2023-10-01] MEDS: COLCHICINE 0.6 MG TAB PO ONE (16:15)
[2023-10-01] MEDS: COUGH DROP (SUGAR FREE) LOZ 24 LOZ/1 BOX BUCCAL PRN (16:40)
--- NOTE | 2023-10-01 22:33 | Electrocardiogram Report ---
Test Reason : Blood Pressure : / mmHG Vent. Rate : 081 BPM Atrial Rate : 081 BPM P-R Int : 144 ms QRS Dur : 098 ms QT Int : 380 ms P-R-T Axes : 045 072 028 degrees QTc Int : 441 ms Normal sinus rhythm T wave abnormality, consider inferolateral ischemia ST elevation, consider inferolateral injury pattern Abnormal ECG When compared with ECG of 30-SEP-2023 20:08, Incomplete right bundle branch block is no longer Present ST more elevated in Inferior leads Confirmed by Reji Amaral ([id number]) on 10/01/2023 10:33:02 PM Referred By: NO PCP Confirmed By:Reji Amaral
[2023-10-01] MEDS: ASPIRIN 81 MG CHEW PO SCH (22:44)
[2023-10-01] MEDS: COLCHICINE 0.6 MG TAB PO SCH (22:44)
[2023-10-02 07:25] LABS: Basophils # (auto) 0.03 K/uL (0.00-0.20); Basophils % (auto) 0.8 %; Eosinophils # (auto) 0.17 K/uL (0.00-0.50); Eosinophils % (auto) 4.3 %; Hematocrit (blood only) 41.5 % (42.0-52.0); Hemoglobin 14.3 g/dl (14.0-18.0); Immature Granulocytes # (auto) 0.01 K/uL (0.01-0.20); Immature Granulocytes % (auto) 0.3 %; Lymphocytes # (auto) 1.71 K/uL (1.20-3.40); Lymphocytes % (auto) 43.5 %; Mean Corpuscular Hgb Conc 34.5 g/dL (32.0-36.0); Monocytes # (auto) 0.44 K/uL (0.11-0.59); Monocytes % (auto) 11.2 %; Neutrophils # (auto) 1.57 K/uL (1.40-6.50); Neutrophils % (auto) 39.9 %; Platelet Count 238 K/uL (130-400); RDW Coefficient of Variation 12.5 % (11.5-14.5); RDW Standard Deviation 41.5 fL (36.4-46.3); Red Blood Count 4.61 M/uL (4.70-6.10); White Blood Count 3.93 K/ul (4.8-10.8)
[2023-10-02 07:46] LABS: Albumin Globulin Ratio 1.4 (0.9-2); Albumin Level 4.1 gm/dl (3.4-5.0); BUN Creatinine Ratio 16.5 (10-20); Bilirubin,Total 0.6 mg/dl (0.2-1.0); Calcium 9.1 mg/dl (8.6-10.3); Creatinine Clr Calc Pharmacy 148.8 ml/min; Est GFR (African American) 139.4 ml/min; Est GFR (Non-African American) 120.3 ml/min; Globulin 2.9 gm/dl (2.5-4.0); Magnesium 2.1 mg/dl (1.7-2.4); Phosphorus 4.1 mg/dl (2.5-4.9); Potassium 3.9 mmol/L (3.5-5.1)
--- NOTE | 2023-10-02 10:40 | Cardiology Progress Note ---
Date of Service October 02, 2023 Assessment & Plan (1) Myopericarditis: Plan IMPRESSION: 28-year-old male chest pain due to acute myocarditis versus myopericarditis; possible viral etiology as patient had a respiratory / GI illness last week after air travel to [place]. EKG revealed 10/01/23, with subtle diffuse J point elevation. Echo cardiogram revealed trivial loculated anterior pericardial effusion, normal LV wall motion and LVEF, 60-65%. Minimally elevated ESR of 22 mm/hr, minimally elevated CRP 3.2 mg/dl. Lyme screen was negative. Viral respiratory panel was negative. No lympocytosis, and no eosinophilia. Troponin trending down. Check for EBV. Repeat EKG Continue metoprolol succinate and lisinpril. If EKG with stable findings, stable for discharge. Patient counseled to abstain from alchohol. No moderate or vigrouous exercise for 3-6 months. 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 Recommend he establishes with local cardiology when he returns home. Future considerations include a follow up cardiac MRI which is not available at this institution. Admission and Anticipated Discharge Date Admission Date: September 30, 2023 Subjective Patient seen in cardiology follow up. Feels well. No recurrent chest discomfort since the 2 episodes that occurred on the day he presented to the hospital on 09/30/2023. Afebrile. Telemetry reveals sinus rhythm in the range of 60 bpm to 80 bpm without arrhythmias. Review of Systems Review of Systems: All systems reviewed & are unremarkable except as noted in HPI & below Physical Exam Constitutional: WD/WN, vitals as above no acute distress Eyes: PERRL, conjunctivae normal, anicteric sclerae ENMT: external ear and nose normal, oropharynx normal Neck: normal visual inspection and trachea midline Respiratory: normal respiratory effort, lungs clear to auscultation Cardiovascular: Rate/Rhythm: regular rate, regular rhythm and + tachycardic Heart Sounds: normal S1 and normal S2; no murmur Vessels: no JVD Extremities: no edema Gastrointestinal (Abdomen): normal bowel sounds, soft, nontender, no hepatosplenomegaly Musculoskeletal: no cyanosis or clubbing, extremities motor strength 5/5 Skin: no rashes, warm and dry Neurologic: PERRL, EOMI, accommodation nl, no face palsy, no dysarthria Psychiatric: A+Ox3, euthymic affect Results & Data Vital Signs (Past 12 Hours) Vital Signs Temp Pulse Pulse Resp BP Pulse Ox O2 Del Method 10/02/23 08:27 36.5 C 82 18 135/75 97 Room Air 10/02/23 04:15 36.4 C L 75 16 117/71 97 Room Air 10/02/23 02:00 10/01/23 23:27 81 O2 Del Method 10/02/23 08:27 10/02/23 04:15 10/02/23 02:00 Room Air 10/01/23 23:27 Laboratory Results Cardiac Enzymes 10/01/23 10/02/23 Range/Units 12:57 06:46 AST 44 H (13-39) U/L Troponin I High Sens 8368.6 H* (0-20) pg/ml CBC 10/02/23 Range/Units 06:46 WBC 3.93 L (4.8-10.8) K/ul RBC 4.61 L (4.70-6.10) M/uL Hgb 14.3 (14.0-18.0) g/dl Hct 41.5 L (42.0-52.0) % Plt Count 238 (130-400) K/uL Neut # (Auto) 1.57 (1.40-6.50) K/uL Lymph # (Auto) 1.71 (1.20-3.40) K/uL [place] # (Auto) 0.44 (0.11-0.59) K/uL Eos # (Auto) 0.17 (0.00-0.50) K/uL Baso # (Auto) 0.03 (0.00-0.20) K/uL Comprehensive Metabolic Panel 10/02/23 Range/Units 06:46 Sodium 139 (136-145) mmol/L Potassium 3.9 (3.5-5.1) mmol/L Chloride 104 (98-107) mmol/L Carbon Dioxide 28 (21-32) mmol/L BUN 14 (6-23) mg/dl Creatinine 0.85 (0.6-1.4) mg/dl Glucose 92 (70-99(Fasting)) mg/dl Calcium 9.1 (8.6-10.3) mg/dl AST 44 H (13-39) U/L ALT 35 (7-52) U/L Alkaline Phosphatase 39 (34-104) U/L Total Protein 7.0 (6.0-8.3) gm/dl Albumin 4.1 (3.4-5.0) gm/dl Intake and Output 10/01/23 10/02/23 10/02/23 22:59 06:59 14:59 Other: # Unmeasured Voids 1 1 Weight 91 kg Weight Measurement Method Built in [facility]
--- NOTE | 2023-10-02 15:07 | Discharge Summary ---
Discharge Summary Date of Service October 02, 2023 Principal Dx & Hospital Course #1 = Principal Diagnosis (1) Myocarditis: Plan Pt is a 28yoM with PMhx significant for bronchial asthma, ulcerative colitis, past alcohol abuse who presented with left-sided sharp chest pain without radiation. Chest Pain Myocarditis Left sided chest pain Trops as high as >39912 downtrended to 8368 EKG NSR on admission. Per cardiology on discharge EKG with "with stable findings of sinus rhythm at 73 bpm, incomplete right bundle branch block, ongoing mild nonspecific repolarization changes" Echo wnl except for noted "trivial loculated anterior pericardial effusion" Chest xray, chest CTA, CT abd/pelvis with no acute findings Possibly viral etiology Cardiology consulted, appreciate recs -Recommended aspirin 324 mg twice daily in addition to colchicine 0.6 mg twice daily. -tele monitoring, repeat EKGs -Activity/exercise restrictions over the next 3 to 6 months Per cardiology, Dr Kennedy on day of discharge: "Reduced colchicine to one time per day after 2 weeks to complete 3 month course , reduced asa to 81 mg daily after a week and follow up with cardio in [place]" and "Change metoprolol tartrate to succinate 25 mg daily. Continue lisinopril 5 mg daily, ASA 324 mg BID, colchicine 0.6 mg BID, add PPI or famotidine for GI prophylaxis." Further recs per Cardiology: "Abstain from alcohol. No moderate or vigorous exercise for 3-6 months. Recommend he establishes with local cardiology when he returns home. Future considerations include a follow up cardiac MRI which is not available at this institution." Close Cardiology and PCP follow up after discharge HTN Noted on admission Per cardiology start low dose lisinopril, and Toprol-XL. Discharged with metoprolol succinate 25mg daily and lisinopril 5mg daily PCP and cardiology followup as above bronchial asthma not in acute exacerbation ulcerative colitis in remission Notes For Next Care Provider Please ensure close followup with Cardiology Per Cardiology, pt should: "Abstain from alcohol. No moderate or vigorous exercise for 3-6 months. Recommend he establishes with local cardiology when he returns home. Future considerations include a follow up cardiac MRI which is not available at this institution." Medication Changes From Visit Per cardiology: -Aspirin 324mg twice a day for a week, then daily until followup with Cardiology in [place] -Colchicine 0.6mg twice a day for 2 weeks, then daily to complete a 3 month course -Lisinopril 5mg daily -metoprolol succinate 25mg daily Pantoprazole 40mg daily for GI prophylaxis while on above meds Admission HPI Per Admitting Provider History obtained from patient and records. Medical history significant for bronchial asthma, ulcerative colitis, past alcohol abuse. 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 Patient noted dry cough symptoms, malaise few days ago en route to [place] from [place]. Attributed symptoms to just being tired from travel with 3 connecting flights. Patient roused from sleep early a.m. with left-sided sharp chest pain without radiation. No shortness of breath. No headache, no abdominal pain. May have had a short-lived episode a few months back. Different from reflux as per patient. Patient consulted ER for worsening symptoms. Patient currently comfortable. 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 No acute distress Skin: No noted rashes or bruises Psych: Appropriate mood and affect Neuro: No gross deficits HEENT: NC/AT Chest: Nontender to palpation. CV: RRR Resp: Breath sounds clear bilaterally, no increased effort of breathing. Abdomen: Soft, nontender, nondistended. Extremities: No edema in lower extremities bilaterally. Updated Medication List Medication Instructions Recorded Confirmed Type loratadine 10 mg PO DAILY PRN allergies 09/30/23 09/30/23 History aspirin 81 mg chewable tablet See Rx Instructions .Route 10/02/23 Rx (Children's Aspirin) .COMPLEX #77 tabs colchicine 0.6 mg tablet (Colcrys) See Rx Instructions .Route 10/02/23 Rx .COMPLEX #42 tabs lisinopril 5 mg tablet (Zestril) 5 mg PO QAM #30 tabs 10/02/23 Rx metoprolol succinate 25 mg 25 mg PO QAM #30 tabs 10/02/23 Rx tablet,extended release 24 hr pantoprazole 40 mg tablet,delayed 40 mg PO DAILY #30 tabs 10/02/23 Rx release Hospital Stay Data Consultations 09/30/23 20:49 ED Decision to Admit Stat 10/01/23 00:21 Consult Cardiology Routine Diagnostic Imagining Performed 09/30/23 18:52 CTA chest dissec wo/w con [CT angio chest dissec wo/w con] Stat 09/30/23 19:09 CTA abd pelvis wo/w con [CT angio abd pelvis wo/w con] Stat Chest X-Ray 09/30/23 17:23 XR chest 1V portable HISTORY: central chest pain COMPARISON: None. FINDINGS: The lungs are clear. Cardiac silhouette is normal in size. No pleural effusions. No pneumothorax. IMPRESSION: No acute process. ACT 112: Negative or not required by law. Electronically signed by: George Gilbert M.D. 09/30/2023 7:40 PM Chest CTA 09/30/23 18:52 CHEST CTA for AORTIC DISSECTION CT DOSE: 1900.77 mGy.cm HISTORY: Mid chest pain. Dissection vs PE TECHNIQUE: Multiaxial CT images of the chest were performed both before and after the intravenous administration of contrast to evaluate the aorta. 3D/MIP images were also obtained. Sagittal and coronal reformations were also reviewed. A dose lowering technique was utilized adhering to the principles of ALARA. COMPARISON STUDY: None. FINDINGS: Noncontrast imaging through the chest shows no evidence for an intramural hematoma within the thoracic aorta. There is a normal caliber thoracic aorta with no evidence for a dissection. No filling defects within the pulmonary arteries to suggest a pulmonary embolus. The heart is normal in size. No pleural or pericardial effusions. Limited views of the upper abdomen demonstrate a normal liver, spleen, adrenal glands. Normal esophagus. Normal thyroid gland. No mediastinal or hilar lymphadenopathy. No mediastinal hematoma. No acute fractures identified. No pneumothorax. Mild biapical pleural- parenchymal scarlike densities are noted. The central airways are patent. No focal lung consolidations to suggest a pneumonia. No evidence for pulmonary edema. IMPRESSION: No evidence for an aortic dissection. ACT 112: Negative or not required by law. Electronically signed by: George Gilbert M.D. 09/30/2023 7:40 PM Abdomen/Pelvis CTA 09/30/23 19:09 Exam(s): CTA ABDOMEN + PELVIS W/WO Contrast IV Amt: 116ml EXAM: CT Angiography Abdomen and Pelvis Without and With Intravenous Contrast CLINICAL HISTORY: Reason for exam: Dissection. TECHNIQUE: Axial computed tomographic angiography images of the abdomen and pelvis without and with intravenous contrast. CTDI is 25.65 mGy and DLP is 2729. 98 mGy-cm. Automated exposure control was utilized for the study. A dose lowering technique was utilized adhering to the principles of ALARA. MIP reconstructed images were created and reviewed. CONTRAST: Patient received 116ml of IV contrast COMPARISON: No relevant prior studies available. FINDINGS: VASCULATURE: Aorta: No acute findings. No abdominal aortic aneurysm. No dissection. Celiac trunk and mesenteric arteries: No acute findings. No occlusion or significant stenosis. Renal arteries: No acute findings. No occlusion or significant stenosis. Iliac arteries: No acute findings. No occlusion or significant stenosis. Lung bases: Unremarkable. No mass. No consolidation. ABDOMEN: Liver: Unremarkable. No mass. Gallbladder and bile ducts: Unremarkable. No calcified stones. No ductal dilation. Pancreas: Unremarkable. No ductal dilation. No mass. Spleen: Unremarkable. No splenomegaly. Adrenals: Unremarkable. No mass. Kidneys and ureters: Residual contrast in the renal collecting systems and ureters on precontrast imaging. Normal caliber ureters. No hydronephrosis. Symmetric renal enhancement on postcontrast imaging. Stomach and bowel: Unremarkable. No mucosal thickening. No bowel obstruction. PELVIS: Appendix: No evidence of appendicitis. Bladder: Unremarkable. No stones. No mass. Reproductive: Unremarkable as visualized. ABDOMEN and PELVIS: Intraperitoneal space: Unremarkable. No significant fluid collection. No free air. Bones/joints: No acute fracture. No dislocation. Soft tissues: Unremarkable. Lymph nodes: Unremarkable. No enlarged lymph nodes. IMPRESSION: No acute findings in the arteries of the abdomen and pelvis. Electronically signed by: Benji Arora M.D. 09/30/23 20:36 PM Pending Results Patient Have Any Pending Studies at Discharge: No Discharge Instructions Given to Patient (Per Discharging Provider) Brayan, You were seen by cardiology and diagnosed with an acute myopericarditis. They recommend discharge with the following medications: -Aspirin 324mg twice a day for a week, then 81mg daily until followup with Cardiology in [place] -Colchicine 0.6mg twice a day for 2 weeks, then daily to complete a 3 month course Please also take the medication pantoprazole 40mg daily to help protect your gastrointestinal tract while on the above medications. For your blood pressure, you were prescribed Lisinopril 5mg daily and metoprolol succinate 25mg daily per Cardiology recommendations. Please keep followup with cardiology as directed in [place]. Per cardiology you will need a cardiac MRI. They also recommend no moderate or vigorous exercise for 3-6 months. Please also keep close follow up with your primary care provider after discharge. Please do not hesitate to come back to the emergency room if your symptoms worsen or return. It was a pleasure taking care of you while you were here. Total Time Total Time Spent Total Time Spent (In Minutes): 75
[2023-10-03] MEDS ORDERED: METOPROLOL SUCC 25MG EXT REL TAB PO SCH (09:00)
[2023-10-03 12:47] LABS: EBV Nuclear Ag Antibody <18.00 U/mL; EBV Virus Capsid Ag IgG Ab <18.00 U/mL; Epstein Barr Virus Early Ag Ab <9.00 U/mL
--- NOTE | 2023-10-03 22:16 | Electrocardiogram Report ---
Test Reason : Blood Pressure : / mmHG Vent. Rate : 073 BPM Atrial Rate : 073 BPM P-R Int : 130 ms QRS Dur : 096 ms QT Int : 372 ms P-R-T Axes : 049 077 029 degrees QTc Int : 409 ms Normal sinus rhythm Incomplete right bundle branch block ST elevation consider inferolateral injury or acute infarct Abnormal ECG When compared with ECG of 01-OCT-2023 13:18, Incomplete right bundle branch block is now Present Confirmed by Reji Amaral ([id number]) on 10/03/2023 10:15:56 PM Referred By: NO PCP Confirmed By:Reji Amaral
== END 2023-10-02 15:56 | disposition home or self-care (01) | DRG 316 ==
LOC: ED 17:12 → EDINP 22:31 → SUATTDRO 22:31 → 2E 10-01 00:20